=== PATIENT | female | born 1990 | race Caucasian/White ===

== ENCOUNTER → 2021-11-07 15:50 | Outpatient (CLI) | payer OTHER, MEDICAID, SELFPAY ==
--- NOTE | 2021-11-07 | DI.US.S_ITS ---
PROCEDURE: US OB >= 14 WEEKS FETUS INDICATIONS: 20 weeks gestation of OUTSIDE/PRIOR DATING DATA: Last menstrual period (LMP): 06/26/2021. LMP-based estimated date of delivery (MARTHA): 04/02/2022. First dating scan (date and location): 11/07/2021. [facility] Estimated date of delivery (MARTHA) from first dating scan: 03/28/2022. The calculations are made using the ultrasound MARTHA of 03/28/2022. TECHNIQUE: Real-time scanning was performed of the fetus, with image documentation and biometric measurements. COMPARISON: None. FINDINGS: General: A single living intrauterine gestation is present. Presentation: Transverse, head maternal left. Placenta: Placental position is anterior, without previa. Placenta edge is approximately 2 cm from the internal cervical os. Amniotic fluid index: 13.7 cm, normal range is 5-24 cm. Single deepest vertical pocket is 4.3 cm. heart rate: 143 beats per minute. Maternal cervical canal: 3.7 cm long. Normal lower limit is 2.5 cm. biometrics: Biparietal diameter: 4.5 cm, 19 weeks 4 days Head circumference: 17 cm, 19 weeks 4 days Abdominal circumference: 15.2 cm, 20 weeks 3 days Femur length: 3.2 cm, 20 weeks 0 days Clinically estimated gestational age: 19 weeks 1 days Composite gestational age from present scan: 19 weeks 6 days Estimated weight and percentile: 337 g, 94th percentile Anatomic survey: Neuro: Ventricles are non-dilated at less than 10 mm. Cisterna magna is normal at 3-11 mm. Cerebellum is normal in size and morphology. Nuchal skin fold: Normal at less than 6 mm between 14-21 weeks gestational age. Face: Nose and lips, facial profile are normal. Spine: Not well seen due to position. Heart: 4-chambered heart is present, with normal ventricular outflow tracts. Diaphragm: Diaphragm is intact. Stomach: Left-sided stomach is present. Kidneys: Not well seen. Cord: 3-vessel cord has orthotopic insertion. Bladder: Normal in size. Extremities: All 4 extremities identified. IMPRESSION: 1. Juárez living intrauterine at 19 weeks 6 days based on today's ultrasound. This is concordant with the prior ultrasound. Fetus is in the 94th percentile for weight. 2. Normal amniotic fluid. Placental edge is approximately 2 cm from the internal cervical os which is borderline. 3. spine and kidneys are not well seen. Otherwise normal anatomic survey. Recommend follow-up OB ultrasound to complete the anatomic survey. We strive to produce accurate, complete, and clear reports of imaging services. To assist us in improving patient care, this report was composed using standard report templates and voice recognition software. Therefore, it may contain abnormal punctuation, insertions and/or omissions. Occasional wrong-word or sound-alike substitutions may occur. Though we review the report and make efforts to correct it, we do recommend that the report be read carefully in proper context to recognize any text inaccuracies. Dictated by: Timothy Cabral M.D. on 11/08/2021 at 8:29 Approved by: Timothy Cabral M.D. on 11/08/2021 at 8:37
== END ==
PROVIDERS: Referring Provider Nurse Practitioner Obstetrics & Gynecology; Visit Provider Nurse Practitioner Obstetrics & Gynecology
DX: Z3A.19 19 weeks gestation of pregnancy; Z34.92 Encounter for supervision of normal pregnancy, unspecified, second trimester
CPT/HCPCS: 76811

== ENCOUNTER → 2021-12-16 08:13 | Outpatient (CLI) | payer OTHER, MEDICAID, SELFPAY ==
--- NOTE | 2021-12-16 | DI.US.S_ITS ---
PROCEDURE: US OB FOLLOW UP INDICATIONS: FOLLOW UP TO 20 WEEK ANATOMY OUTSIDE/PRIOR DATING DATA: Last menstrual period (LMP): 06/26/2021. LMP-based estimated date of delivery (MARTHA): 04/02/2022. First dating scan (date and location): 11/07/2021. Estimated date of delivery (MARTHA) from first dating scan: 03/28/2022 The calculations are made using the ultrasound MARTHA of 03/28/2022. TECHNIQUE: Real-time scanning was performed of the fetus, with image documentation. Endovaginal scanning: Not performed COMPARISON: [facility], US OB >= 14 WEEKS FETUS, 11/07/2021, 16:05. FINDINGS: A single living intrauterine gestation is present. Presentation: Breech. Placenta: Placental position is anterior, without previa. Amniotic fluid index: 18.7 cm, normal range is 5-24 cm. heart rate: 141 beats per minute. Maternal cervical canal: 3.2 cm long. Normal lower limit is 2.5 cm. Estimated gestational age from initial scan: 25 weeks 3 days. Miscellaneous: Patient underwent limited imaging to complete a anatomic survey today. Spine and kidneys are within normal limits. IMPRESSION: Patient returned today for limited imaging to complete and anatomic survey. Living, late 2nd trimester intrauterine . Normal spine and kidneys. This completes an unremarkable survey. Dictated by: Ulises Aguilar M.D. on 12/16/2021 at 14:22 Approved by: Ulises Aguilar M.D. on 12/16/2021 at 14:25
[2021-12-16 09:30] LABS: Hematocrit 35.4 % (36-46); Hemoglobin 12.4 g/dL (12.0-16.0); Mean Corpuscular Hemoglobin 30.9 PG (26-34); Mean Corpuscular Volume 88.5 fL (80-100); Platelet Count 219 X10^3/uL (150-400); Red Cell Distribution Width 13.4 % (11.6-14.8); White Blood Cell Count 7.1 X10^3/uL (4.5-11.0)
[2021-12-16 10:00] LABS: Glucose Fasting 66 mg/dL (70-100)
[2021-12-16 10:56] LABS: Glucose Tol Interpretation INTERPRETATION
[2021-12-16 11:09] LABS: Glucose 1 Hour 126 mg/dL (70-170)
[2021-12-16 12:11] LABS: Glucose 2 Hour 87 mg/dL (70-140)
== END ==
PROVIDERS: PCP Nurse Practitioner Obstetrics & Gynecology; Referring Provider Nurse Practitioner Obstetrics & Gynecology; Visit Provider Nurse Practitioner Obstetrics & Gynecology
DX: Z36.2 Encounter for other antenatal screening follow-up (principal); Z13.1 Encounter for screening for diabetes mellitus; Z3A.25 25 weeks gestation of pregnancy
CPT/HCPCS: 36415; 76816; 82951; 82952; 85027